=== PATIENT | male | born 1970 | race Caucasian/White ===

== ENCOUNTER → 2023-09-08 11:01 | Outpatient (REF) | payer OTHER, SELFPAY | LOC: DHCBC MAIN 11:01 | PROVIDERS: ATTENDING PHYSICIAN Internal Medicine Cardiovascular Disease; FAMILY PHYSICIAN Internal Medicine | DX: I10 Essential (primary) hypertension (principal); R94.31 Abnormal electrocardiogram [ECG] [EKG] | CPT/HCPCS: 93306 ==

== ENCOUNTER 2025-06-21 06:29 | Outpatient (RCR) | payer OTHER, SELFPAY | END 2025-06-28 23:59 | disposition home or self-care (01) | LOC: ROT 06:29 | PROVIDERS: ATTENDING PHYSICIAN Physician Assistant Medical; FAMILY PHYSICIAN Internal Medicine | DX: Z47.89 Encounter for other orthopedic aftercare (principal); M65.331 Trigger finger, right middle finger; Z73.6 Limitation of activities due to disability; M62.81 Muscle weakness (generalized) | CPT/HCPCS: 97010; 97166; 97535 ==

== ENCOUNTER 2025-07-01 09:18 | Outpatient (RCR) | payer OTHER, SELFPAY | END 2025-07-01 23:59 | disposition home or self-care (01) | LOC: ROT 09:18 | PROVIDERS: ATTENDING PHYSICIAN Physician Assistant Medical; FAMILY PHYSICIAN Internal Medicine | DX: Z47.89 Encounter for other orthopedic aftercare (principal); M65.331 Trigger finger, right middle finger; Z73.6 Limitation of activities due to disability; M62.81 Muscle weakness (generalized) | CPT/HCPCS: 97018; 97110; 97140 ==